=== PATIENT | female | born 1950 ===

== ENCOUNTER 2025-05-18 13:34 | Inpatient (IN) | payer BC, MEDICARE ==
[2025-05-18 19:45] VITALS: BMI 29.6
[2025-05-18 20:19] LABS: Anion Gap 14 mmol/L (10-20); BUN (Urea Nitrogen) 5 mg/dL (9.8-20.1); Calc. Creatinine Clearance 100 mL/min (70-130); Calcium 8.9 mg/dL (7.8-10.44); Carbon Dioxide 23 mmol/L (23-31); Chloride 99 mmol/L (98-107); Glucose 108 mg/dL (83-110); Potassium 3.7 mmol/L (3.5-5.1); Sodium 132 mmol/L (136-145)
[2025-05-18] MEDS: HYDROcodone/Acetaminophen 10/325 mg Tablet PO PRN (21:26)
[2025-05-18] MEDS: Ondansetron PF 4 MG/2 ML Vial IVP PRN (23:10)
[2025-05-19 05:48] LABS: #Basophils 0.03 10x3/uL (0.0-0.2); #Eosinophils 0.05 10x3/uL (0.0-0.7); #Monocytes 0.91 10x3/uL (0.11-0.59); #Neutrophils 5.09 10x3/uL (1.40-6.50); %Basophils 0.4 % (0.0-1.0); %Eosinophils 0.6 % (0.0-10.0); %Lymphocytes 25.9 % (21.0-51.0); %Monocytes 11.0 % (0.0-10.0); %Neutrophils 61.7 % (42.0-75.0); Hematocrit 33.2 % (36.0-47.0); Hemoglobin 11.7 g/dL (12.0-16.0); Mean Corpuscular Hemoglobin 30.2 pg (27.0-31.0); Mean Corpuscular Volume 85.8 fL (78.0-98.0); Platelet Count 228 10x3/uL (130-400); Red Blood Cell (RBC) Count 3.87 mill/uL (4.20-5.40); White Blood Cell (WBC) Count 8.25 10x3/uL (4.8-10.8)
[2025-05-19 06:01] LABS: ALT (SGPT) 9 U/L (Less than 34); AST (SGOT) 19 U/L (11-34); Albumin 2.9 g/dL (3.1-4.5); Alkaline Phosphatase 50 U/L (40-110); Anion Gap 16 mmol/L (10-20); BUN (Urea Nitrogen) Less than 4 mg/dL (9.8-20.1); Bilirubin, Total 0.3 mg/dL (0.3-1.2); Calc. Creatinine Clearance 103 mL/min (70-130); Calcium 8.9 mg/dL (7.8-10.44); Carbon Dioxide 24 mmol/L (23-31); Chloride 98 mmol/L (98-107); Globulin 3.6 g/dL (2.4-3.5); Glucose 88 mg/dL (83-110); Magnesium 1.6 mg/dL (1.6-2.6); Potassium 3.4 mmol/L (3.5-5.1); Sodium 135 mmol/L (136-145)
[2025-05-19] MEDS ORDERED: Bisacodyl 10 MG SUPP PR PRN (08:09)
[2025-05-19] MEDS ORDERED: Non-Formulary Item 1 EACH (Rivaroxaban [Xarelto] 20 MG Tablet) PO SCH (09:00)
[2025-05-19] MEDS: Senokot S 8.6-50 MG TAB PO SCH (09:31)
[2025-05-19] MEDS: Pantoprazole 40 MG VIAL IVP SCH (09:31)
[2025-05-19] MEDS: Metoclopramide HCl 10 MG (2 mL) VIAL IVP PRN (20:49)
[2025-05-20 05:24] LABS: #Basophils Less than 0.03 10x3/uL (0.0-0.2); #Eosinophils 0.07 10x3/uL (0.0-0.7); #Monocytes 1.13 10x3/uL (0.11-0.59); #Neutrophils 6.36 10x3/uL (1.40-6.50); %Basophils 0.2 % (0.0-1.0); %Eosinophils 0.6 % (0.0-10.0); %Lymphocytes 30.3 % (21.0-51.0); %Monocytes 10.3 % (0.0-10.0); %Neutrophils 58.1 % (42.0-75.0); Hematocrit 34.0 % (36.0-47.0); Hemoglobin 11.9 g/dL (12.0-16.0); Mean Corpuscular Hemoglobin 30.2 pg (27.0-31.0); Mean Corpuscular Volume 86.3 fL (78.0-98.0); Platelet Count 229 10x3/uL (130-400); Red Blood Cell (RBC) Count 3.94 mill/uL (4.20-5.40); White Blood Cell (WBC) Count 10.94 10x3/uL (4.8-10.8)
[2025-05-20 05:44] LABS: ALT (SGPT) Less than 7 U/L (Less than 34); AST (SGOT) 20 U/L (11-34); Albumin 2.7 g/dL (3.1-4.5); Alkaline Phosphatase 48 U/L (40-110); Anion Gap 15 mmol/L (10-20); BUN (Urea Nitrogen) 4 mg/dL (9.8-20.1); Bilirubin, Total 0.3 mg/dL (0.3-1.2); Calc. Creatinine Clearance 107 mL/min (70-130); Calcium 8.9 mg/dL (7.8-10.44); Carbon Dioxide 23 mmol/L (23-31); Chloride 98 mmol/L (98-107); Globulin 3.7 g/dL (2.4-3.5); Glucose 86 mg/dL (83-110); Potassium 3.3 mmol/L (3.5-5.1); Sodium 133 mmol/L (136-145)
[2025-05-20] MEDS ORDERED: Potassium Chloride 20 MEQ in Premix 1 BAG IVPB SCH (08:00)
[2025-05-20] MEDS: Potassium Chloride 20 MEQ in Premix 1 BAG IVPB SCH (08:53)
[2025-05-20] MEDS: Acetaminophen 325 MG TAB PO PRN (14:55)
[2025-05-21 06:54] LABS: #Basophils 0.03 10x3/uL (0.0-0.2); #Eosinophils 0.04 10x3/uL (0.0-0.7); #Monocytes 1.36 10x3/uL (0.11-0.59); #Neutrophils 8.17 10x3/uL (1.40-6.50); %Basophils 0.2 % (0.0-1.0); %Eosinophils 0.3 % (0.0-10.0); %Lymphocytes 23.0 % (21.0-51.0); %Monocytes 10.8 % (0.0-10.0); %Neutrophils 65.3 % (42.0-75.0); Hematocrit 34.1 % (36.0-47.0); Hemoglobin 11.8 g/dL (12.0-16.0); Mean Corpuscular Hemoglobin 29.9 pg (27.0-31.0); Mean Corpuscular Volume 86.3 fL (78.0-98.0); Platelet Count 227 10x3/uL (130-400); Red Blood Cell (RBC) Count 3.95 mill/uL (4.20-5.40); White Blood Cell (WBC) Count 12.54 10x3/uL (4.8-10.8)
[2025-05-21 07:00] LABS: ALT (SGPT) 7 U/L (Less than 34); AST (SGOT) 20 U/L (11-34); Albumin 2.7 g/dL (3.1-4.5); Alkaline Phosphatase 52 U/L (40-110); Anion Gap 13 mmol/L (10-20); BUN (Urea Nitrogen) 5 mg/dL (9.8-20.1); Bilirubin, Total 0.3 mg/dL (0.3-1.2); Calc. Creatinine Clearance 111 mL/min (70-130); Calcium 9.0 mg/dL (7.8-10.44); Carbon Dioxide 20 mmol/L (23-31); Chloride 96 mmol/L (98-107); Globulin 3.9 g/dL (2.4-3.5); Glucose 94 mg/dL (83-110); Magnesium 1.5 mg/dL (1.6-2.6); Potassium 3.7 mmol/L (3.5-5.1); Sodium 125 mmol/L (136-145)
[2025-05-21] MEDS: Magnesium 2 GM/50 ML(in water) 2 GM in Premix 1 BAG IVPB SCH (08:35)
[2025-05-21 09:28] LABS: CAUTI Indications for Culture Fever or rigors; Glucose, Urine (Dipstick) Normal (Negative); Leukocyte 250 Leu/uL (Negative); Mucous/LPF Rare LPF (<2+); Protein, Urine (Dipstick) 100 mg/dL (Neg-Trace); Specific Gravity, Urine 1.019 (1.002-1.036); WBC/HPF Greater than 50 HPF (0-3)
[2025-05-21 09:29] LABS: Bacteria/HPF 1+ HPF (None Seen)
[2025-05-21 09:30] LABS: Urine Culture Reflex Yes Yes
[2025-05-21] MEDS: cefTRIAXone\\ROCEPHIN 1 GM in Sodium Chloride 0.9% 100 ML IVPB SCH (10:41)
[2025-05-21] MEDS: Bisacodyl 10 MG SUPP PR SCH (12:36)
[2025-05-21] MEDS: Metoclopramide HCl 10 MG (2 mL) VIAL IVP SCH (12:37)
[2025-05-21] MEDS: Ketorolac Tromethamine 30 MG (1 mL) VIAL IVP SCH ×2 (14:33→20:19)
[2025-05-21 18:55] LABS: ALT (SGPT) Less than 7 U/L (Less than 34); AST (SGOT) 17 U/L (11-34); Albumin 2.3 g/dL (3.1-4.5); Alkaline Phosphatase 48 U/L (40-110); Anion Gap 10 mmol/L (10-20); BUN (Urea Nitrogen) Less than 4 mg/dL (9.8-20.1); Bilirubin, Total 0.2 mg/dL (0.3-1.2); Calc. Creatinine Clearance 109 mL/min (70-130); Calcium 8.4 mg/dL (7.8-10.44); Carbon Dioxide 24 mmol/L (23-31); Chloride 97 mmol/L (98-107); Globulin 3.6 g/dL (2.4-3.5); Glucose 88 mg/dL (83-110); Potassium 3.3 mmol/L (3.5-5.1); Sodium 128 mmol/L (136-145)
[2025-05-22 07:11] LABS: #Basophils 0.03 10x3/uL (0.0-0.2); #Eosinophils 0.06 10x3/uL (0.0-0.7); #Monocytes 1.16 10x3/uL (0.11-0.59); #Neutrophils 7.64 10x3/uL (1.40-6.50); %Basophils 0.3 % (0.0-1.0); %Eosinophils 0.5 % (0.0-10.0); %Lymphocytes 19.3 % (21.0-51.0); %Monocytes 10.5 % (0.0-10.0); %Neutrophils 69.0 % (42.0-75.0); Hematocrit 31.0 % (36.0-47.0); Hemoglobin 10.8 g/dL (12.0-16.0); Mean Corpuscular Hemoglobin 29.8 pg (27.0-31.0); Mean Corpuscular Volume 85.6 fL (78.0-98.0); Platelet Count 227 10x3/uL (130-400); Red Blood Cell (RBC) Count 3.62 mill/uL (4.20-5.40); White Blood Cell (WBC) Count 11.06 10x3/uL (4.8-10.8)
[2025-05-22 07:20] LABS: ALT (SGPT) Less than 7 U/L (Less than 34); AST (SGOT) 18 U/L (11-34); Albumin 2.5 g/dL (3.1-4.5); Alkaline Phosphatase 51 U/L (40-110); Anion Gap 16 mmol/L (10-20); BUN (Urea Nitrogen) 6 mg/dL (9.8-20.1); Bilirubin, Total 0.3 mg/dL (0.3-1.2); Calc. Creatinine Clearance 109 mL/min (70-130); Calcium 8.7 mg/dL (7.8-10.44); Carbon Dioxide 22 mmol/L (23-31); Chloride 97 mmol/L (98-107); Globulin 3.6 g/dL (2.4-3.5); Glucose 79 mg/dL (83-110); Potassium 3.1 mmol/L (3.5-5.1); Sodium 132 mmol/L (136-145)
[2025-05-22] MEDS: Ketorolac Tromethamine 30 MG (1 mL) VIAL IVP SCH ×2 (09:02→20:01)
[2025-05-22] MEDS: Bisacodyl 10 MG SUPP PR SCH (09:05)
[2025-05-22] MEDS: Mirtazapine 15 MG TAB PO SCH (19:33)
[2025-05-22] MEDS ORDERED: Bisacodyl 10 MG SUPP PR PRN (21:59)
[2025-05-23 05:57] LABS: #Basophils Less than 0.03 10x3/uL (0.0-0.2); #Eosinophils 0.04 10x3/uL (0.0-0.7); #Monocytes 1.11 10x3/uL (0.11-0.59); #Neutrophils 7.76 10x3/uL (1.40-6.50); %Basophils 0.2 % (0.0-1.0); %Eosinophils 0.3 % (0.0-10.0); %Lymphocytes 22.4 % (21.0-51.0); %Monocytes 9.6 % (0.0-10.0); %Neutrophils 67.1 % (42.0-75.0); Hematocrit 34.5 % (36.0-47.0); Hemoglobin 11.9 g/dL (12.0-16.0); Mean Corpuscular Hemoglobin 29.5 pg (27.0-31.0); Mean Corpuscular Volume 85.4 fL (78.0-98.0); Platelet Count 249 10x3/uL (130-400); Red Blood Cell (RBC) Count 4.04 mill/uL (4.20-5.40); White Blood Cell (WBC) Count 11.57 10x3/uL (4.8-10.8)
[2025-05-23 06:32] LABS: ALT (SGPT) Less than 7 U/L (Less than 34); AST (SGOT) 26 U/L (11-34); Albumin 2.8 g/dL (3.1-4.5); Alkaline Phosphatase 57 U/L (40-110); Anion Gap 12 mmol/L (10-20); BUN (Urea Nitrogen) 5 mg/dL (9.8-20.1); Bilirubin, Total 0.3 mg/dL (0.3-1.2); Calc. Creatinine Clearance 120 mL/min (70-130); Calcium 9.0 mg/dL (7.8-10.44); Carbon Dioxide 21 mmol/L (23-31); Chloride 100 mmol/L (98-107); Globulin 4.3 g/dL (2.4-3.5); Glucose 94 mg/dL (83-110); Magnesium 1.7 mg/dL (1.6-2.6); Potassium 3.5 mmol/L (3.5-5.1); Sodium 129 mmol/L (136-145)
[2025-05-23] MEDS: Sulfameth/Trimethoprim DS 800-160mg TAB PO SCH ×2 (09:49→20:03)
[2025-05-23] MEDS: Acetaminophen 325 MG TAB PO SCH (13:29)
[2025-05-23] MEDS: Ibuprofen 800 MG TAB PO SCH (13:29)
[2025-05-23] MEDS: Lidocaine 1% (PF) 30 ML VIAL ONE (14:45)
[2025-05-24 07:58] LABS: #Basophils 0.03 10x3/uL (0.0-0.2); #Eosinophils 0.05 10x3/uL (0.0-0.7); #Monocytes 0.67 10x3/uL (0.11-0.59); #Neutrophils 4.75 10x3/uL (1.40-6.50); %Basophils 0.4 % (0.0-1.0); %Eosinophils 0.7 % (0.0-10.0); %Lymphocytes 26.6 % (21.0-51.0); %Monocytes 8.9 % (0.0-10.0); %Neutrophils 62.9 % (42.0-75.0); Hematocrit 35.7 % (36.0-47.0); Hemoglobin 12.4 g/dL (12.0-16.0); Mean Corpuscular Hemoglobin 29.7 pg (27.0-31.0); Mean Corpuscular Volume 85.4 fL (78.0-98.0); Platelet Count 265 10x3/uL (130-400); Red Blood Cell (RBC) Count 4.18 mill/uL (4.20-5.40); White Blood Cell (WBC) Count 7.55 10x3/uL (4.8-10.8)
[2025-05-24 08:24] LABS: ALT (SGPT) Less than 7 U/L (Less than 34); AST (SGOT) 23 U/L (11-34); Albumin 2.7 g/dL (3.1-4.5); Alkaline Phosphatase 56 U/L (40-110); Anion Gap 15 mmol/L (10-20); BUN (Urea Nitrogen) Less than 4 mg/dL (9.8-20.1); Bilirubin, Total 0.2 mg/dL (0.3-1.2); Calc. Creatinine Clearance 116 mL/min (70-130); Calcium 9.1 mg/dL (7.8-10.44); Carbon Dioxide 22 mmol/L (23-31); Chloride 96 mmol/L (98-107); Globulin 4.1 g/dL (2.4-3.5); Glucose 113 mg/dL (83-110); Potassium 2.7 mmol/L (3.5-5.1); Sodium 130 mmol/L (136-145)
[2025-05-24 09:37] LABS: Magnesium 1.6 mg/dL (1.6-2.6)
[2025-05-24] MEDS: DULoxetine 30 MG CAP PO SCH (10:10)
[2025-05-24] MEDS: Potassium Chloride 20 MEQ in Premix 1 BAG IVPB SCH (10:57)
[2025-05-24 16:40] LABS: Anion Gap 13 mmol/L (10-20); BUN (Urea Nitrogen) Less than 4 mg/dL (9.8-20.1); Calc. Creatinine Clearance 103 mL/min (70-130); Calcium 9.0 mg/dL (7.8-10.44); Carbon Dioxide 23 mmol/L (23-31); Chloride 98 mmol/L (98-107); Glucose 123 mg/dL (83-110); Potassium 3.1 mmol/L (3.5-5.1); Sodium 131 mmol/L (136-145)
[2025-05-24] MEDS: Metoclopramide HCl 10 MG (2 mL) VIAL IVP SCH (20:44)
[2025-05-25 07:35] LABS: #Basophils 0.04 10x3/uL (0.0-0.2); #Eosinophils 0.06 10x3/uL (0.0-0.7); #Monocytes 0.73 10x3/uL (0.11-0.59); #Neutrophils 4.03 10x3/uL (1.40-6.50); %Basophils 0.6 % (0.0-1.0); %Eosinophils 0.9 % (0.0-10.0); %Lymphocytes 25.3 % (21.0-51.0); %Monocytes 11.1 % (0.0-10.0); %Neutrophils 61.2 % (42.0-75.0); Hematocrit 36.8 % (36.0-47.0); Hemoglobin 12.9 g/dL (12.0-16.0); Mean Corpuscular Hemoglobin 29.7 pg (27.0-31.0); Mean Corpuscular Volume 84.8 fL (78.0-98.0); Platelet Count 258 10x3/uL (130-400); Red Blood Cell (RBC) Count 4.34 mill/uL (4.20-5.40); White Blood Cell (WBC) Count 6.59 10x3/uL (4.8-10.8)
[2025-05-25 07:52] LABS: ALT (SGPT) Less than 7 U/L (Less than 34); AST (SGOT) 20 U/L (11-34); Albumin 2.7 g/dL (3.1-4.5); Alkaline Phosphatase 54 U/L (40-110); Anion Gap 13 mmol/L (10-20); BUN (Urea Nitrogen) Less than 4 mg/dL (9.8-20.1); Bilirubin, Total 0.2 mg/dL (0.3-1.2); Calc. Creatinine Clearance 113 mL/min (70-130); Calcium 9.1 mg/dL (7.8-10.44); Carbon Dioxide 22 mmol/L (23-31); Chloride 100 mmol/L (98-107); Globulin 4.0 g/dL (2.4-3.5); Glucose 101 mg/dL (83-110); Potassium 3.1 mmol/L (3.5-5.1); Sodium 132 mmol/L (136-145)
[2025-05-25] MEDS: Potassium Chloride 20 MEQ in Premix 1 BAG IVPB SCH (11:03)
[2025-05-25] MEDS: Magnesium 2 GM/50 ML(in water) 2 GM in Premix 1 BAG IVPB SCH (11:03)
[2025-05-25 16:07] LABS: Magnesium 2.3 mg/dL (1.6-2.6)
[2025-05-25 17:37] LABS: Anion Gap 14 mmol/L (10-20); BUN (Urea Nitrogen) Less than 4 mg/dL (9.8-20.1); Calc. Creatinine Clearance 120 mL/min (70-130); Calcium 8.7 mg/dL (7.8-10.44); Carbon Dioxide 19 mmol/L (23-31); Chloride 101 mmol/L (98-107); Glucose 121 mg/dL (83-110); Potassium 4.5 mmol/L (3.5-5.1); Sodium 129 mmol/L (136-145)
[2025-05-26 05:32] LABS: #Basophils Less than 0.03 10x3/uL (0.0-0.2); #Eosinophils 0.13 10x3/uL (0.0-0.7); #Monocytes 0.80 10x3/uL (0.11-0.59); #Neutrophils 2.57 10x3/uL (1.40-6.50); %Basophils 0.3 % (0.0-1.0); %Eosinophils 2.3 % (0.0-10.0); %Lymphocytes 38.1 % (21.0-51.0); %Monocytes 13.9 % (0.0-10.0); %Neutrophils 44.5 % (42.0-75.0); Hematocrit 30.5 % (36.0-47.0); Hemoglobin 10.5 g/dL (12.0-16.0); Mean Corpuscular Hemoglobin 29.4 pg (27.0-31.0); Mean Corpuscular Volume 85.4 fL (78.0-98.0); Platelet Count 246 10x3/uL (130-400); Red Blood Cell (RBC) Count 3.57 mill/uL (4.20-5.40); White Blood Cell (WBC) Count 5.77 10x3/uL (4.8-10.8)
[2025-05-26 05:46] LABS: ALT (SGPT) Less than 7 U/L (Less than 34); AST (SGOT) 25 U/L (11-34); Albumin 2.4 g/dL (3.1-4.5); Alkaline Phosphatase 44 U/L (40-110); Anion Gap 10 mmol/L (10-20); BUN (Urea Nitrogen) Less than 4 mg/dL (9.8-20.1); Bilirubin, Total 0.1 mg/dL (0.3-1.2); Calc. Creatinine Clearance 89 mL/min (70-130); Calcium 8.5 mg/dL (7.8-10.44); Carbon Dioxide 24 mmol/L (23-31); Chloride 100 mmol/L (98-107); Globulin 3.6 g/dL (2.4-3.5); Glucose 85 mg/dL (83-110); Potassium 3.2 mmol/L (3.5-5.1); Sodium 131 mmol/L (136-145)
[2025-05-26] MEDS: Potassium Chloride 20 MEQ in Premix 1 BAG IVPB SCH (08:38)
[2025-05-26 12:08] VITALS: BMI 29.6
[2025-05-26] MEDS: Amoxicillin/Potassium Clav 875 MG TAB PO SCH ×2 (12:13→22:46)
[2025-05-27 05:43] LABS: #Basophils 0.03 10x3/uL (0.0-0.2); #Eosinophils 0.15 10x3/uL (0.0-0.7); #Monocytes 0.77 10x3/uL (0.11-0.59); #Neutrophils 2.39 10x3/uL (1.40-6.50); %Basophils 0.4 % (0.0-1.0); %Eosinophils 2.1 % (0.0-10.0); %Lymphocytes 51.9 % (21.0-51.0); %Monocytes 11.0 % (0.0-10.0); %Neutrophils 34.0 % (42.0-75.0); Hematocrit 32.4 % (36.0-47.0); Hemoglobin 11.3 g/dL (12.0-16.0); Mean Corpuscular Hemoglobin 29.6 pg (27.0-31.0); Mean Corpuscular Volume 84.8 fL (78.0-98.0); Platelet Count 275 10x3/uL (130-400); Red Blood Cell (RBC) Count 3.82 mill/uL (4.20-5.40); White Blood Cell (WBC) Count 7.02 10x3/uL (4.8-10.8)
[2025-05-27 05:56] LABS: ALT (SGPT) 8 U/L (Less than 34); AST (SGOT) 31 U/L (11-34); Albumin 2.5 g/dL (3.1-4.5); Alkaline Phosphatase 52 U/L (40-110); Anion Gap 10 mmol/L (10-20); BUN (Urea Nitrogen) Less than 4 mg/dL (9.8-20.1); Bilirubin, Total 0.2 mg/dL (0.3-1.2); Calc. Creatinine Clearance 111 mL/min (70-130); Calcium 8.6 mg/dL (7.8-10.44); Carbon Dioxide 25 mmol/L (23-31); Chloride 105 mmol/L (98-107); Globulin 3.9 g/dL (2.4-3.5); Glucose 98 mg/dL (83-110); Potassium 3.5 mmol/L (3.5-5.1); Sodium 136 mmol/L (136-145)
[2025-05-27 20:45] VITALS: BP 109/74; TEMP 98.5
[2025-05-29 14:25] LABS: ANA Symphony (Qualitative) POSITIVE (Negative); ANA Symphony (Quantitative) 2.2 Ratio (< 0.7 Negative); CENP IgG Antibody 0.7 EliAU/mL (<7 Negative); RNP70 IgG Antibody 7.7 EliAU/mL (<7 Negative); SSA/Ro IgG Antibody 1.5 EliAU/mL (<7 Negative); SSB/La IgG Antibody Less than 0.4 EliAU/mL (<7 Negative); Scleroderma-70 IgG Antibody 0.7 EliAU/mL (<7 Negative); U1RNP IgG Antibody 9.8 EliAU/mL (<5 Negative); dsDNA IgG Antibody 0.9 IU/mL (<10 Negative)
[2025-05-29 14:36] LABS: Smith D IgG Antibody Less than 0.7 EliAU/mL (<7 Negative)
== END 2025-05-27 23:35 | DRG 392 ==
LOC: INTOOBSV 13:34 → T4-B 13:34 → OBSVTOIN 05-19 17:05
PROVIDERS: ADMIT Family Medicine; ATTEND Family Medicine
PROC: 0X9J0ZZ Drainage of Right Hand, Open Approach (ICD-10-PCS; principal; 2025-05-23)
PROC: 3E03329 Introduction of Other Anti-infective into Peripheral Vein, Percutaneous Approach (ICD-10-PCS; 2025-05-26)
DX: R11.2 Nausea with vomiting, unspecified (principal); N39.0 Urinary tract infection, site not specified; E87.1 Hypo-osmolality and hyponatremia; M48.54XA Collapsed vertebra, not elsewhere classified, thoracic region, initial encounter for fracture; K44.9 Diaphragmatic hernia without obstruction or gangrene; I10 Essential (primary) hypertension; E78.5 Hyperlipidemia, unspecified; E87.5 Hyperkalemia; K59.00 Constipation, unspecified; K21.9 Gastro-esophageal reflux disease without esophagitis; L03.011 Cellulitis of right finger; T40.2X5A Adverse effect of other opioids, initial encounter; Z86.718 Personal history of other venous thrombosis and embolism; Z90.710 Acquired absence of both cervix and uterus; Z98.890 Other specified postprocedural states; Z90.721 Acquired absence of ovaries, unilateral
CPT/HCPCS: 36415; 71045; 80053; 81001; 83605; 83735; 84145; 85025; 86038; 86141; 86225; 86235; 87070; 87077; 87086; 87205; 96374; G0378; J0696; J1885; J2003; J2405; J2470; J2765; J3475; J3480; J7120